=== PATIENT | female | born 1940 | race Caucasian/White ===

== ENCOUNTER → 2018-01-16 | Outpatient (CLI) | payer MEDICARE ==
[~2018-01-16] MED LIST: AMOCLA875 PO; CHONDROITIN PO; Caltrate-600 W1 EACH PO; Coq-10100 MG PO; GLUCOSAMINE PO; HYDR1TAB94 PO; LISI20 PO; NABU750 PO; POTA10T PO; SIMV40 PO; SPIR50 PO
== END | disposition home or self-care (01) ==
LOC: PLD 10:07 → LAB SHORT 10:07
DX: D48.5 Neoplasm of uncertain behavior of skin (principal)
CPT/HCPCS: 88305

== ENCOUNTER → 2018-02-14 | Outpatient (CLI) | payer MEDICARE | LOC: PLD 12:06 → LAB SHORT 12:06 | DX: D48.5 Neoplasm of uncertain behavior of skin (principal) | CPT/HCPCS: 88305 ==

== ENCOUNTER → 2018-06-18 | Outpatient (CLI) | payer MEDICARE | END | disposition home or self-care (01) | LOC: LAB SHORT 13:54 → PLD 13:54 | DX: C44.311 Basal cell carcinoma of skin of nose (principal) | CPT/HCPCS: 88305 ==

== ENCOUNTER → 2023-01-25 | Outpatient (CLI) | payer MEDICARE | END | disposition home or self-care (01) | LOC: LAB 12:04 → LAB SHORT 12:04 → PLD 12:04 | DX: D48.5 Neoplasm of uncertain behavior of skin (principal) | CPT/HCPCS: 88305 ==

== ENCOUNTER → 2023-02-28 | Outpatient (CLI) | payer MEDICARE | END | disposition home or self-care (01) | LOC: PLD 14:29 → LAB SHORT 14:29 | DX: C44.612 Basal cell carcinoma of skin of right upper limb, including shoulder (principal); L57.8 Other skin changes due to chronic exposure to nonionizing radiation | CPT/HCPCS: 88305 ==

== ENCOUNTER → 2023-05-30 | Outpatient (CLI) | payer MEDICARE | END | disposition home or self-care (01) | LOC: LAB 08:34 → LAB SHORT 08:34 → PLD 08:34 | DX: C44.311 Basal cell carcinoma of skin of nose (principal) | CPT/HCPCS: 88305 ==